=== PATIENT | male | born 1985 | race Hispanic/Latino ===

== ENCOUNTER 2018-03-03 13:59 | Emergency (ER) | payer SELFPAY ==
[~2018-03-03] VITALS: Ht 175.3 cm; Wt 87.5 kg
[~2018-03-03 13:59] MED LIST: AUGMENTIN 875-1 EACH PO; BACTRIM DS TAB1 EACH PO; NORCO 10MG-325MG1 EA PO; PREDNISONE; TYLENOL WITH C1 EACH PO; Z.0.ASACOL400 MG; Z.0.NEXIUM20 MG
--- OUTSIDE RECORDS SUMMARY | 2018-03-03 14:01 | XMS REPORT ---
Author Author [facility] Address Unknown Phone Unavailable Care Team Providers Care Gardening Supervisor Name Role Phone UNKNOWN, REFFERING PP Unavailable Giselle GILL Unavailable Unavailable JUAN FIELDS M.D. Unavailable Unavailable Payers Payer Name Policy Type Policy Number Effective Date Expiration Date Problems This patient has no known problems. Allergies, Adverse Reactions, Alerts Allergy Name Allergy Type Status Severity Reaction(s) Onset Date Inactive Date Treating Clinician Comments morphine DA Active SV 2017-09-09 00:00:00 Medications This patient has no known medications. Encounters Start Date/Time End Date/Time Encounter Type Admission Type Attending Clinicians Care Facility Care Department Encounter ID 2017-09-05 00:00:00 2017-09-06 00:00:00 Outpatient [facility] [id number] Results Test Description Test Time Test Comments Text Results Atomic Results Result Comments Culture, Blood Routine 2017-03-13 09:45:00 Specimen: BloodCollected: 03/07/2017 19:25 Status: Final Last Updated: 03/13/2017 09:45 (1) ER Bed 10 Culture Result (Final) (Final) No Growth After 5 Days Culture, Blood Routine 2017-03-13 09:45:00 Specimen: BloodCollected: 03/07/2017 19:15 Status: Final Last Updated: 03/13/2017 09:45 (1) ER Bed 10 Culture Result (Final) (Final) No Growth After 5 Days Culture, Blood Routine 2017-03-13 09:45:00 Specimen: BloodCollected: 03/07/2017 19:00 Status: Final Last Updated: 03/13/2017 09:45 (1) ER Bed 10 Culture Result (Final) (Final) No Growth After 5 Days Magnesium, Serum 2017-03-08 11:55:00 Magnesium (test code=MG) 2.0 mg/dL 1.7-2.5 Basic Metabolic [id number] 11:55:00* Test Item Value Reference Range Comments Sodium (test code=NA) 130 mmol/L 135-145 Potassium (test code=K) 3.9 mmol/L 3.5-5.1 Chloride (test code=CL) 96 mmol/L 98-105 Carbon Dioxide (test code=CO2) 25 mmol/L 22-29 Glucose (test code=GLU) 118 mg/dL 70-115 Blood Urea Nitrogen (test code=BUN) 27 mg/dL 6-20 Creatinine (test code=CREAT) 0.8 mg/dL 0.7-1.2 Calcium (test code=CA) 8.7 mg/dL 8.3-10.5 BUN/Creatinine Ratio (test code=BCRATIO) 33.8 Anion Gap (test code=AGAP) 9 mmol/L 7-16 Estimated GFR (test code=GFR) >60 mL/min/1.73m2 eGFR (estimated Glomerular Filtration Rate) is an estimated value,calculated from the patient's serum creatinine using the MDRD equation.It is NOT the patient's actual GFR. The eGFR provides a more clinicallyuseful measure of kidney disease than serum creatinine alone.This calculation takes sex and race into account, if the informationis provided. If the race is not provided, and the patient isAfrican-Guamanian, multiply by 1.212. If sex is not provided, and thepatient is female, multiply by 0.742. Results for patients <18 years ofage have not been validated by the MDRD study and should be interpretedwith caution.eGFR Result Interpretation:eGFR > or=60 is in the Normal RangeeGFR < 60 may mean kidney diseaseeGFR < 15 may mean kidney failureRanges recommended by the National Kidney Foundat ion,http://nkdep.nih.gov XR CHEST 1 [id number] 03:51:54AFTER HOURS SERVICE ON: 03/08/2017 3:51 AMAP Portable ChestLocation Code [id number]: leukocytosisFINDINGS: There are no infiltrates. There are no pleural effusions. There is nopneumothorax. Cardiac silhouette and mediastinum appear within normallimits. IMPRESSION: No active intrathoracic findings.XR SHOULDER 2+V.[id number] 03:51:25AFTER HOURS SERVICE ON: 03/08/2017 3:51 AMRight Shoulder, 4 ViewsLocation Code M1 2History: shoulder painFindings:There is normal anatomic alignment. No fractur e or dislocation is seen. Glenohumeral joint is within normal limits. Acromiocl avicular joint isunremarkable.Impression:Unremarkable shoulder radiograph.CT HEAD OR BRAIN WO [id number] 20:37:46Exam: CT of the brain without contrast.History: Choreiform movementsTechnique: Contiguous axial CT images were obtained from the skull basethrough the vertex without contrast. One or more of the following dose reduction techniques were used:Automated exposure control, adjustment of the mA and/or kV according topatient size, and/or utilization of iterative reconstruction technique.Total DLP: 785.8mGy-cm. Comparison: NoneLocation: S79Glljdfst: The ventricles and sulci are normal in size and symmetric. The basalcisterns are patent. There is no mass effect or midline shift. There is no evidence for acute territorial infarction. There is no acuteintracranial hemorrhage. There are no extra-axial fluid collections. Mucosal disease is identified within the right maxillary sinus. Themastoid air c ells are well aerated.Impression: 1. No non-contrast ct evidence of an acute in tracranial abnormality. Lactic Acid [id number] 20:20:00* Test Item Value Reference Range Comments Lactic Acid, Bld (test code=LAC) 0.9 mmol/L 0.5-1.9 C-Reactive Protein, [id number] 20:02:00* Test Item Value Reference Range Comments CRP (test code=CRP) 28.2 mg/L 0.0-5.0 Sed Rate ESR ([place])2017-03-07 19:46:00* Test Item Value Reference Range Comments ESR (test code=HESR) 22 mm/Hr 0-9 Alcohol/Ethanol, [id number] 18:59:00* Test Item Value Reference Range Comments Alcohol, Ethyl (test code=ETOH) <0.01 g/dL 0.00-0.01 Intoxicated 0.080 g/dL or more [id number] 18:59:00* Test Item Value Reference Range Comments Salicylate (test code=SALI) <0.3 mg/dL 0.3-10.0 Change in unit of measurement for Salicylate ( from ug/mL to mg/dL ) Comprehensive Metabolic [id number] 18:59:00* Test Item Value Reference Range Comments Sodium (test code=NA) 133 mmol/L 135-145 Potassium (test code=K) 4.3 mmol/L 3.5-5.1 Chloride (test code=CL) 93 mmol/L 98-105 Carbon Dioxide (test code=CO2) 22 mmol/L 22-29 Glucose (test code=GLU) 88 mg/dL 70-115 Blood Urea Nitrogen (test code=BUN) 37 mg/dL 6-20 Creatinine (test code=CREAT) 1.4 mg/dL 0.7-1.2 Calcium (test code=CA) 9.9 mg/dL 8.3-10.5 Prot Total (test code=TP) 8.6 g/dL 6.4-8.3 Albumin (test code=ALB) 4.7 g/dL 3.5-5.2 A/G Ratio (test code=AGRATIO) 1.2 Ratio Globulin (test code=GLOB) 3.9 2.9-3.1 Bili Total (test code=TBIL) 0.8 mg/dL 0.1-0.9 Alk Phos (test code=APHOS) 110 U/L 40-129 AST (test code=AST) 65 U/L 1-40 ALT (test code=ALT) 29 U/L 1-41 BUN/Creatinine Ratio (test code=BCRATIO) 26.4 Anion Gap (test code=AGAP) 18 mmol/L 7-16 Estimated GFR (test code=GFR) >60 mL/min/1.73m2 eGFR (estimated Glomerular Filtration Rate) is an estimated value,calculated from the patient's serum creatinine using the MDRD equation.It is NOT the patient's actual GFR. The eGFR provides a more clinicallyuseful measure of kidney disease than serum creatinine alone.This calculation takes sex and race into account, if the informationis provided. If the race is not provided, and the patient isAfrican-Guamanian, multiply by 1.212. If sex is not provided, and thepatient is female, multiply by 0.742. Results for patients <18 years ofage have not been validated by the MDRD study and should be interpretedwith caution.eGFR Result Interpretation:eGFR > or=60 is in the Normal RangeeGFR < 60 may mean kidney diseaseeGFR < 15 may mean kidney failureRanges recommended by the National Kidney Foundat ion,http://nkdep.nih.gov [id number] 18:59:00* Test Item Value Reference Range Comments Acetaminophen (test code=ACET) <15.0 ug/mL 15.0-30.0 CBC with [id number] 18:25:00* Test Item Value Reference Range Comments WBC (test code=WBC) 17.7 K/cumm 4.4-10.5 RBC (test code=RBC) 5.06 M/cumm 4.10-5.70 Hemoglobin (test code=HGB) 13.8 gm/dL 13.4-17.4 Hematocrit (test code=HCT) 41.3 % 38.7-52.0 MCV (test code=MCV) 81.5 fL 80-100 MCH (test code=MCH) 27.3 pg 27.0-32.5 MCHC (test code=MCHC) 33.5 g/dL 32.0-37.5 RDW (test code=RDW) 13.7 % 11.5-14.5 Platelet Count (test code=PLTCT) 383 K/cumm 140-440 MPV (test code=MPV) 7.0 fL Diff Method (test code=DIFFM) Auto Neutrophil (test code=NEUT) 76.4 % 36-70 Lymphocyte (test code=LYMPH) 16.7 % 12-44 Monocyte (test code=MONO) 5.7 % 0-11 Eosinophil (test code=EOS) 1.0 % 0-7 Basophil (test code=BASO) 0.3 % 0-2 Neutro Abs (test code=ANEUT) 13.5 K/cumm 1.6-7.4 Lymph Abs (test code=ALYMPH) 3.0 K/cumm 0.5-4.6 Mchenry Abs (test code=AMONO) 1.0 K/cumm 0.0-1.2 Eos Abs (test code=AEOS) 0.17 K/cumm 0.00-0.74 Baso Abs (test code=ABASO) 0.1 K/cumm 0.00-0.21 HUMERUS LEFT 2+VIEWS [place] [id number] Patient Name: KRISTIN REGALADO MR #: [id number] : 1985 Age/Sex: 31/M Req #: [id number] Adm Physician: Ordered by: JOEL GILL MD Report #: [id number] Location: ER Room/Bed: Procedure: [id number] DX/HUMERUS LEFT 2+VIE WS Exam Date: 04/27/17 Exam Time: 1740 REPORT STATUS: Signed PROCEDURE: X-RAY LEFT HUMERUS, TWO OR MORE VIEWS FAVIOLA RISON: None. INDICATIONS: LEFT MID UPPER ARM ABSCESS FINDINGS: 2 views of the left humerus (AP lateral) There are no fractures, disloc ations, lytic or blastic lesions. The bones are well-mineralized. Lucency in the soft tissue of the left lateral arm consistent with laceration/abscess. CONCLUSION: Soft tissue abscess in the left upper arm. No evidence of underlying osteomyelitis. Dictated by: Lennox Marquis M.D. on 04/27/19 18 at 18:19 Electronically approved by: Lennox Marquis M.D. on 8 at 18:19 Dictated By: LENNOX MARQUIS MD Electronically Si gned By: LENNOX MARQUIS MD on 04/27/171818 Transcribed By: CINTHIA on 04/27/179 COPY TO: JOEL GILL MD
[2018-03-03] MEDS ORDERED: CLINDAMYCIN HC300 MG PO (16:53)
[2018-03-03] MEDS ORDERED: LIDOCAINE 1% W/EPINEPHRINE 20 ML VIAL INJ ONE (17:00)
[2018-03-03] MEDS ORDERED: TYLENOL WITH C1 EACH PO (17:26)
[2018-03-03] MEDS ORDERED: HYDROCODONE/APAP 7.5MG-325MG 1 EA TAB PO PRN (17:30)
[2018-03-03] MEDS ORDERED: CLINDAMYCIN PHOS 600 MG/ 4 ML VIAL IM NR (17:30)
[2018-03-03] MEDS ORDERED: BACTRIM DS TAB1 EACH PO (17:40)
== END 2018-03-03 18:16 | disposition home or self-care (01) ==
LOC: ER 13:59
DX: L02.413 Cutaneous abscess of right upper limb (principal); L03.113 Cellulitis of right upper limb
CPT/HCPCS: 10060; 87071; 87186; 87205; 99283

== ENCOUNTER 2018-08-07 21:00 | Inpatient (IN) | payer SELFPAY ==
[~2018-08-07] VITALS: Ht 175.3 cm; Wt 87.5 kg
[~2018-08-07 21:00] MED LIST changes: +CLINDAMYCIN HC300 MG PO
[2018-08-07] MEDS: PIPER-TAZ 3.375 GM 50 ML IV SCH (22:55)
[2018-08-07 23:03] LABS: BASOPHILS # (AUTO) 0.1 (0.0-0.1); BASOPHILS % 0.5 % (0.0-1.0); EOSINOPHILS # (AUTO) 0.4 (0.0-0.4); HEMATOCRIT 32.6 % (38.2-49.6); HEMOGLOBIN 10.9 g/dL (14.0-18.0); LYMPHOCYTES # (AUTO) 2.1 (1.0-3.2); LYMPHOCYTES % 20.2 % (18.0-39.1); MEAN CORPUSCULAR HEMOGLOBIN 26.7 pg (28-32); MEAN CORPUSCULAR HGB CONC 33.4 g/dL (31-35); MEAN CORPUSCULAR VOLUME 79.9 fL (81-99); MONOCYTES # (AUTO) 0.9 (0.2-0.8); NEUTROPHILS # (AUTO) 6.7 (2.1-6.9); NEUTROPHILS % 65.5 % (38.7-80.0); PLATELET COUNT 378 x10e3/uL (140-360); RED BLOOD COUNT 4.08 x10e6/uL (4.3-5.7); RED CELL DISTRIBUTION WIDTH 13.7 % (11.7-14.4)
[2018-08-07] MEDS: VANCOMYCIN 1GM/NS 250 ML 250 ML IV SCH (23:10)
[2018-08-07] MEDS ORDERED: TRAMADOL HCL 50 MG TAB PO ONE (23:15)
[2018-08-07 23:20] LABS: ALANINE AMINOTRANSFERASE 16 IU/L (0-55); ALBUMIN 2.7 g/dL (3.5-5.0); ALBUMIN/GLOBULIN RATIO 0.6 (0.8-2.0); ALKALINE PHOSPHATASE 94 IU/L (40-150); ANION GAP 12.4 mmol/L (8-16); BLOOD UREA NITROGEN 22 mg/dL (7-26); BUN/CREATININE RATIO 22 (6-25); CARBON DIOXIDE 24 mmol/L (22-29); CHLORIDE 104 mmol/L (98-107); EST GLOMERULAR FILTRATION RATE > 60 ML/MIN (60-); GLUCOSE 104 mg/dL (74-118); POTASSIUM 3.4 mmol/L (3.5-5.1); SODIUM 137 mmol/L (136-145)
[2018-08-07] MEDS ORDERED: SODIUM CHLORIDE 0.9% 50ML 50 ML ONE (23:34)
[2018-08-07] MEDS ORDERED: IOPAMIDOL 370 MG/ML 200 ML INFUS..BTL INJ ONE (23:34)
[2018-08-08] VITALS (9 sets, daily range): BP systolic 130–154; BP diastolic 65–86
--- NOTE | 2018-08-08 00:09 | Diagnostic Imaging Report ---
TECHNIQUE: Computed tomography imaging of the PELVIS was performed with injected contrast using standard departmental protocols. 100 cc of Isovue administered.Dose modulation, iterative reconstruction, and/or weight based adjustment of the mA/kV was utilized to reduce the radiation dose to as low as reasonably achievable HISTORY: Infection COMPARISON: None. FINDINGS: Skin thickening and subcutaneous edema involving the left lateral hip and proximal thigh. Soft tissue defects extending laterally through the skin surface. No drainable abscess. Reactive left inguinal lymph nodes. Osseous structures unremarkable. Intrapelvic organs unremarkable. IMPRESSION: Left lateral hip and proximal thigh superficial cellulitis with soft tissue defects. No abscess. Signed by: Dr. Hiram Montoya M.D. on 08/08/2018 12:06 AM
[2018-08-08] MEDS ORDERED: TRAMADOL HCL 50 MG TAB PO PRN (00:45)
[2018-08-08] MEDS ORDERED: ONDANSETRON HCL INJ 2MG/ML 2ML 2 MG/ML VIAL IV PRN (00:45)
[2018-08-08] MEDS ORDERED: SODIUM CHLORIDE FLUSH 10 ML SYR INJ PRN (00:45)
[2018-08-08 00:56] LABS: CLARITY,URINE CLEAR (CLEAR); COLOR,URINE YELLOW (YELLOW); KETONES,URINE NEGATIVE (NEGATIVE); LEUKOCYTE ESTERASE ,URINE NEGATIVE (NEGATIVE); NITRITE,URINE NEGATIVE (NEGATIVE); PROTEIN,URINE DIPSTICK NEGATIVE (NEGATIVE)
[2018-08-08 00:57] LABS: AMPHETAMINES SCREEN,URINE POSITIVE (NEGATIVE); BENZODIAZEPINES SCREEN,URINE NEGATIVE (NEGATIVE); BILIRUBIN,URINE NEGATIVE (NEGATIVE); PHENCYCLIDINE SCREEN,URINE NEGATIVE (NEGATIVE); URINE UROBILINOGEN 0.2 mg/dL (0.2 - 1)
[2018-08-08 01:09] LABS: BACTERIA,URINE RARE /HPF; EPITHELIAL CELLS,URINE RARE /LPF; RBC,URINE 0-5 /HPF (0-5)
--- NOTE | 2018-08-08 03:16 | NUR ---
PT IS TRANSFERRED FROM ER .PT IS AOX3 RESPIRATIONS ARE EVEN AND UNLABORED LEFT HIP WITH CELLULITIS AND LEFT UPPER EXT WITH ABSCESS .LEFT EJ S/L .BED LOWER POSITION .DENIES PAIN .CALL LIGHT WITH IN REACH .CONTINUE TO MONITOR
[2018-08-08] MEDS ORDERED: SODIUM CHLORIDE 0.9% 250ML 250 ML ONE (05:30)
[2018-08-08] MEDS: PIPER-TAZ 3.375 GM 50 ML IV SCH ×2 (06:00→13:55)
--- NOTE | 2018-08-08 07:05 | NUR ---
PT RESTING .CALL LIGHT WITH IN REACH .CONTINUE TO MONITOR BEDSIDE REPORT GIVEN TO THE ONCOMING NURSE
--- NOTE | 2018-08-08 07:25 | NUR ---
PATIENT IN BED RESTING WITH NO S/S OF DISTRESS. C/O PAIN TO LEFT HIP AND PAIN MEDICATION ADMINISTERED ORDERED. DRESSING DRY AND INTACT TO LEFT HIP. BED IN LOWER POSITION, CALL LIGHT AT REACH.
[2018-08-08] MEDS: VANCOMYCIN 1GM/NS 250 ML 250 ML IV SCH (09:36)
[2018-08-08] MEDS ORDERED: HYDRALAZINE HCL 20 MG/ML VIAL IV PRN (11:15)
[2018-08-08] MEDS ORDERED: ACETAMINOPHEN 325 MG TAB PO PRN (11:15)
--- NOTE | 2018-08-08 11:22 | NUR ---
DR MARTINES'S STRAINER TENDER IN TO SEE PATIENT. NEW ORDERS RECEIVED.
[2018-08-08] MEDS: HYDROCODONE/APAP 5MG-325MG TAB PO PRN ×2 (13:25→17:50)
--- NOTE | 2018-08-08 15:26 | NUR ---
Wound Care Consultation - Initial Evaluation Patient admitted from home to ER for abscess of left upper anterior Leg that started 2-3 wks ago. Patient has history of recurrent boils and multiple I&D's. He verbalizes he was ignoring area and hoping it would go away on its own. Blood Culture - Results Pending Wound Culture - Results Pending Imaging of Left Lat Hip -consistent with Cellulitis LABS: WBC10.21 HGB10.9 HCT32.6 ALB2.7 HbA1c Results Pending Wound Care Consulted for Evaluation and Recommendation of Left Anterior Upper Thigh Ulcer. PATIENT VISIT: Patient AAOX4. Calm and Cooperative Patient Presents with Open Ulcer to Left Anterior Upper thigh. Open area is 2x2x undetermined depth due to tissue necrosis. Undermining visible but unable to explore extent of tissue damage due to area being highly sensitive with guarding upon light touch. Medially there is another open area that is 0.3x0.3 cm with boggy periwound draining purulent bloody fluid that likely connects/undermines to larger ulcer. ABD and 4x4 gauze dressing was 100% saturated with purulent drainage. Indurated area 20x20 cm. Likely has extensive tissue damage and patient will benefit from surgical consult for I&D and washout. Venancio Score [address] RECOMMENDATION: Needs Surgical Debridement with possible VAC placement after surgical I&D and washout. 1. Left Upper Anterior Thigh - Abscess - - Irrigate wound with 30cc of Dakin's 0.25% Solution q12H - Apply Drawtex Strips lightly packed as tolerated into wound base and undermining then Cover with ABD Pad q12H. Thank you for consulting with Wound Care. Addendum: 08/08/18 at 1541 by Kong Valdez RN Amended: Links added.
[2018-08-08] MEDS ORDERED: SODIUM HYPOCHLORITE 0.25% 480 ML SOLN IR SCH (15:45)
--- NOTE | 2018-08-08 15:48 | NUR ---
WOUND SPECIMEN COLLECTED AND SENT TO THE LAB. PATIENT IN BED TALKING ON THE PHONE, NO COMPLAIN VOICED.
--- NOTE | 2018-08-08 15:57 | NUR ---
GAVE PACKET OF INFORMATION WITH COMMUNITY [employer]OURCES FOR ASSISTANCE WITH LOW TO NO INCOME TO PATIENT. RESOURCES THAT PATIENT MAY BE ABLE TO FOLLOW UP UPON DISCHARGE. PT EDUCATED ON EACH RESOURCE AND UNDERSTANDING HOW TO FOLLOW UP TO SEE IF QUALIFIED FOR EACH RESOURCE.
--- NOTE | 2018-08-08 15:57 | NUR ---
$4 MEDICATION LIST ON CHART FOR MD TO UTILIZE.
--- NOTE | 2018-08-08 18:11 | NUR ---
Nutrition Screen Note RD Recommendation for Physician: -Continue regular diet as ordered Plan of Care: RD following, monitoring for tolerance and adequacy Nutrition reason for involvement: Nutrition Risk Trigger MST Primary Diagnose(s): abscess of LUE PMH: recurrent boils and multiple I&D's Ht: 69in Wt: 193lb BMI: 28.5kg/m2 IBW: 160lb RD Assessment: (08/08) Chart reviewed. Labs and meds reviewed. 32yo M, who was admitted for abscess of left upper anterior leg that started 2-3 wks ago. Visited pt in the room. Pt was eating [employer]. Family brought many snacks, drinks and foods from outside. Pt reported good appetite with no GI complains. No issue with chewing or swallowing. Pt reported gradual weight loss (unknown #) but no sign of fat/muscle loss upon observation. Will continue to monitor and follow. Current Diet: regular diet Malnutrition Evaluation (08/08/2018) The patient does not meet criteria for a specified degree of malnutrition at this time. Will re-evaluate at follow-up as appropriate. Diet Education Needs Assessment: Diet education not indicated. Nutrition Care Level: low Signed: Nichole Bernal, MS, RD, LD
[2018-08-08] MEDS ORDERED: LORAZEPAM INJ 2 MG/ML VIAL IV PRN (19:30)
--- NOTE | 2018-08-08 19:45 | NUR ---
RECEIVE DPT IN BED C/O PAIN AND ANXIETY .DAY NURSE CONTACTED HETAL HOBBS GOT THE ORDER FOR ATIVAN .OFFERED PT ATIVAN .PT REFUSED .PT WANTED DILAUDID FOR PAIN .DAY NURSE POWER CRANE OPERATOR REFUSED TO GIVE DILAUDID.
--- NOTE | 2018-08-08 20:20 | NUR ---
PT WANTS TO GO AMA AND GIVEN THE AMA FORM PT SIGNED .IV REMOVED .PT LEFT THE BUILDING.NOTIFIED HETAL HOBBS .
--- NOTE | 2018-08-10 06:11 | Discharge Summary ---
ADMISSION DIAGNOSES: Left thigh wound present on admission; anemia; hypokalemia; illicit drug use including opiates, methamphetamines and amphetamines; left lower extremity edema. DISCHARGE DIAGNOSES: Left thigh wound present on admission; anemia; hypokalemia; illicit drug use including opiates, methamphetamines and amphetamines; left lower extremity edema. Rule out left lower extremity deep vein thrombosis. HISTORY: The patient has a history of multiple boils. SURGICAL HISTORY: Includes multiple I and D's and a left knee ACL repair. FAMILY HISTORY: The patient's dad had cancer. SOCIAL HISTORY: The patient admits to smoking less than 1 pack per week for five years. He denies alcohol use and illicit drug use, although his urine drug screen was positive for methamphetamines, amphetamines, and opiates. HOSPITAL COURSE: A 32-year-old male, complains of left anterior upper thigh wound that began two weeks ago. About three days ago, the wound popped and drained pus. The patient denies fever and IV drug use. He has not used any antibiotics. On admission, the patient was started on vancomycin and Zosyn. Wound culture was ordered. CT of the pelvis was negative for abscess. Left lower extremity venous Doppler was negative for DVT. The patient was very adamant that his pain was uncontrolled. He was started on [place]. Wound Care was consulted. Prior to being seen by Wound Care, the patient left AMA as he says he was not getting the Dilaudid that he wanted, so he wanted to leave. The patient discharged before the nurse called the attending regarding the patient leaving AMA. Dictated by Brooke Nguyen NP MD DOUGLAS Ragland/MODIsabell /[id number]
== END 2018-08-08 19:45 | disposition left against medical advice (07) | DRG 605 ==
LOC: ER 21:00 → ERHOLD 08-08 00:57 → MED/SURG3 08-08 02:23
PROVIDERS: ADMIT Internal Medicine; ATTEND Internal Medicine
DX: S71.102A Unspecified open wound, left thigh, initial encounter (principal); I82.402 Acute embolism and thrombosis of unspecified deep veins of left lower extremity; L03.116 Cellulitis of left lower limb; X58.XXXA Exposure to other specified factors, initial encounter; D64.9 Anemia, unspecified; E87.6 Hypokalemia; F15.10 Other stimulant abuse, uncomplicated; F11.10 Opioid abuse, uncomplicated
CPT/HCPCS: 36415; 72193; 80053; 80307; 81001; 85025; 87040; 87071; 87186; 87205; 93971; 99284; J2543; J3370; J7050; Q9967

== ENCOUNTER 2019-02-26 04:09 | Emergency (ER) | payer SELFPAY ==
[~2019-02-26] VITALS: Ht 175.3 cm; Wt 87.5 kg
--- NOTE | 2019-02-26 04:32 | NUR ---
Patients requesting to see another doctor. Patients in triage door stating he needs a shot, dr marquez explained calmly to that a shot of antibiotics would not resolve the skin issue if the patient does not fill prescriptions. good rx coupons given. patients irrate and raising voice.
--- NOTE | 2019-02-26 04:32 | NUR ---
DC PAPERWORK AND RX GIVEN TO PATIENT. PT EXPRESSED CONCERN ABOUT PAYING FOR ANTIBIOTIC. DR MONTERO PROVIDED PT C GOOD RX COUPON FOR ANTIBIOTICS AT COST OF $12.99 TO PATIENT. PT COUNSELLED ON NEED TO TAKE ALL ANTIBIOTICS UNTIL COMPLETE. PT VERBALIZED UNDERSTANDING OF ALL INSTRUCTIONS.
[2019-02-26 04:54] VITALS: BP 154/91
== END 2019-02-26 04:35 | disposition home or self-care (01) ==
LOC: ER 04:09
DX: S81.802A Unspecified open wound, left lower leg, initial encounter (principal); S81.801A Unspecified open wound, right lower leg, initial encounter; L03.116 Cellulitis of left lower limb; L03.115 Cellulitis of right lower limb
CPT/HCPCS: 99282

== ENCOUNTER 2021-06-02 19:38 | Inpatient (IN) | payer SELFPAY ==
[~2021-06-02] VITALS: Ht 175.3 cm; Wt 87.5 kg
[2021-06-02] MEDS ORDERED: LACTATED RINGER'S 1,000 ML INJ ONE ×2 (20:15→21:15)
[2021-06-02] MEDS ORDERED: SODIUM CHLORIDE 0.9% 1000ML 1,000 ML IV ONE (20:45)
[2021-06-02 20:48] LABS: BASOPHILS # (AUTO) 0.1 (0.0-0.1); BASOPHILS % 0.5 % (0.0-1.0); HEMATOCRIT 34.6 % (38.2-49.6); HEMOGLOBIN 10.9 g/dL (14.0-18.0); LYMPHOCYTES # (AUTO) 0.5 (1.0-3.2); LYMPHOCYTES % 3.2 % (18.0-39.1); MEAN CORPUSCULAR HEMOGLOBIN 25.7 pg (28-32); MEAN CORPUSCULAR HGB CONC 31.5 g/dL (31-35); MEAN CORPUSCULAR VOLUME 81.6 fL (81-99); MONOCYTES # (AUTO) 0.3 (0.2-0.8); MONOCYTES % 1.8 % (4.4-11.3); NEUTROPHILS # (AUTO) 14.2 (2.1-6.9); NEUTROPHILS % 91.9 % (38.7-80.0); PLATELET COUNT 280 x10e3/uL (140-360); RED BLOOD COUNT 4.24 x10e6/uL (4.3-5.7); RED CELL DISTRIBUTION WIDTH 15.6 % (11.7-14.4)
[2021-06-02 21:10] LABS: ALBUMIN 2.5 g/dL (3.5-5.0); ALBUMIN/GLOBULIN RATIO 0.6 (0.8-2.0); ANION GAP 17.3 mmol/L (8-16); CALCIUM 8.7 mg/dL (8.4-10.2); CREATININE, SERUM 1.78 mg/dL (0.72-1.25); POTASSIUM 4.3 mmol/L (3.5-5.1)
[2021-06-02] MEDS ORDERED: LACTATED RINGER'S 1,000 ML IV ONE ×2 (21:15)
[2021-06-02 21:16] LABS: BAND NEUTROPHILS % (MANUAL) 1 %; LYMPHOCYTES % (MANUAL) 2 % (19-48); METAMYELOCYTES % (MANUAL) 1 % (0-0); MONOCYTES % (MANUAL) 6 % (3.4-9.0); NEUTROPHILS % (MANUAL) 89 % (40-74); PLATELET ESTIMATE ADEQUATE; PLATELET MORPHOLOGY COMMENT NORMAL; RBC MORPHOLOGY COMMENT NORMAL
[2021-06-02] MEDS ORDERED: SODIUM CHLORIDE 0.9% 50ML 50 ML ONE (21:37)
[2021-06-02] MEDS ORDERED: IOPAMIDOL 370 MG/ML 200 ML INFUS..BTL INJ ONE (21:38)
[2021-06-02] MEDS ORDERED: CEFEPIME 1 GM in SODIUM CHLORIDE 0.9% 50ML 50 ML IV SCH (23:15)
[2021-06-02] MEDS ORDERED: Vancomycin IV 1 GM in SODIUM CHLORIDE 0.9% 250ML 250 ML IV STA (23:16)
[2021-06-02] MEDS: SODIUM CHLORIDE 0.9% 1000ML 1,000 ML IV SCH (23:53)
[2021-06-03] VITALS (14 sets, daily range): BP systolic 89–136; BP diastolic 49–95
[2021-06-03] MEDS ORDERED: ONDANSETRON HCL INJ 2MG/ML 2ML 2 MG/ML VIAL IV PRN (00:15)
[2021-06-03] MEDS ORDERED: MELATONIN 3 MG TAB PO PRN (00:15)
[2021-06-03] MEDS ORDERED: HYDRALAZINE HCL 20 MG/ML VIAL IV PRN (00:15)
[2021-06-03] MEDS ORDERED: MAGNESIUM/ALUMINUM/SIMETHICONE 30 ML UDC PO PRN (00:15)
[2021-06-03] MEDS ORDERED: DOCUSATE SODIUM 100 MG CAP PO PRN ×2 (00:15→08:15)
[2021-06-03] MEDS ORDERED: ACETAMINOPHEN 325 MG TAB PEG PRN (00:15)
[2021-06-03] MEDS ORDERED: NOREPINEPHRINE 8 MG/D5W 250 ML 250 ML ONE (01:02)
[2021-06-03] MEDS: NOREPINEPHRINE 8 MG/D5W 250 ML 250 ML IV SCH (01:05)
[2021-06-03 01:48] LABS: CLARITY,URINE CLEAR (CLEAR); COLOR,URINE YELLOW (YELLOW); KETONES,URINE NEGATIVE (NEGATIVE); LEUKOCYTE ESTERASE ,URINE NEGATIVE (NEGATIVE); NITRITE,URINE NEGATIVE (NEGATIVE); PROTEIN,URINE DIPSTICK 1+ (NEGATIVE); URINE UROBILINOGEN 0.2 mg/dL (0.2 - 1)
[2021-06-03 01:51] LABS: AMPHETAMINES SCREEN,URINE POSITIVE (NEGATIVE); BENZODIAZEPINES SCREEN,URINE POSITIVE (NEGATIVE); PHENCYCLIDINE SCREEN,URINE NEGATIVE (NEGATIVE)
[2021-06-03 01:53] LABS: BACTERIA,URINE FEW /HPF; EPITHELIAL CELLS,URINE RARE /LPF; RBC,URINE 0-5 /HPF (0-5); WBC,URINE (MAN) 0-5 /HPF (0-5)
[2021-06-03] MEDS: GUAIFENESIN/DEXTROMETHORPHAN LIQD 5 ML UDC PO PRN ×2 (02:23→12:18)
[2021-06-03 06:09] LABS: BASOPHILS # (AUTO) 0.1 (0.0-0.1); BASOPHILS % 0.6 % (0.0-1.0); EOSINOPHILS % 0.2 % (0.0-6.0); HEMATOCRIT 32.2 % (38.2-49.6); HEMOGLOBIN 10.5 g/dL (14.0-18.0); LYMPHOCYTES % 5.3 % (18.0-39.1); MEAN CORPUSCULAR HEMOGLOBIN 25.8 pg (28-32); MEAN CORPUSCULAR HGB CONC 32.6 g/dL (31-35); MEAN CORPUSCULAR VOLUME 79.1 fL (81-99); MONOCYTES # (AUTO) 0.2 (0.2-0.8); NEUTROPHILS # (AUTO) 17.5 (2.1-6.9); NEUTROPHILS % 90.9 % (38.7-80.0); PLATELET COUNT 290 x10e3/uL (140-360); RED BLOOD COUNT 4.07 x10e6/uL (4.3-5.7); RED CELL DISTRIBUTION WIDTH 15.9 % (11.7-14.4)
[2021-06-03 06:33] LABS: ANION GAP 13.7 mmol/L (8-16); CALCIUM 7.9 mg/dL (8.4-10.2); CREATININE, SERUM 1.21 mg/dL (0.72-1.25); POTASSIUM 3.7 mmol/L (3.5-5.1)
[2021-06-03 07:21] LABS: THYROID STIMULATING HORMONE 0.789 uIU/mL (0.350-4.940)
[2021-06-03 07:40] LABS: HIV 1&2 AB SCREEN NON-REACTIVE (NONREACTIVE)
[2021-06-03] MEDS: SODIUM CHLORIDE 0.9% 1000ML 1,000 ML IV SCH ×2 (08:00→16:43)
[2021-06-03] MEDS: FAMOTIDINE 20 MG TAB PO SCH ×2 (08:00→17:51)
[2021-06-03 08:51] LABS: BAND NEUTROPHILS % (MANUAL) 37 %; LYMPHOCYTES % (MANUAL) 3 % (19-48); METAMYELOCYTES % (MANUAL) 11 % (0-0); MYELOCYTES % (MANUAL) 4 % (0-0); NEUTROPHILS % (MANUAL) 45 % (40-74); PLATELET ESTIMATE ADEQUATE; PLATELET MORPHOLOGY COMMENT NORMAL; RBC MORPHOLOGY COMMENT NORMAL
[2021-06-03] MEDS ORDERED: MULTIVITAMINS/MINERALS TAB PO SCH (09:00)
[2021-06-03] MEDS: MULTIVITAMINS/MINERALS TAB PO SCH (09:35)
[2021-06-03] MEDS: CEFTRIAXONE 2 GM in SODIUM CHLORIDE 0.9% 100 ML IV SCH (12:03)
[2021-06-03] MEDS: ENOXAPARIN SOD INJ 40 MG/0.4 ML SYR SC SCH (16:43)
[2021-06-03] MEDS: LORAZEPAM 0.5 MG TAB PO PRN ×2 (20:05→23:59)
[2021-06-03] MEDS ORDERED: ADVIL200 M1 PO (20:38)
[2021-06-03] MEDS ORDERED: TYLENOL325 MG PO (20:39)
[2021-06-04] VITALS (18 sets, daily range): BP systolic 2–140; BP diastolic 52–92
[2021-06-04] MEDS: NOREPINEPHRINE 8 MG/D5W 250 ML 250 ML IV SCH (01:04)
[2021-06-04] MEDS: LORAZEPAM 0.5 MG TAB PO PRN ×3 (04:45→23:56)
[2021-06-04] MEDS: MULTIVITAMINS/MINERALS TAB PO SCH (09:01)
[2021-06-04] MEDS: FAMOTIDINE 20 MG TAB PO SCH ×2 (09:01→16:37)
[2021-06-04] MEDS: CEFTRIAXONE 2 GM in SODIUM CHLORIDE 0.9% 100 ML IV SCH (09:01)
[2021-06-04 14:15] LABS: BASOPHILS # (AUTO) 0.1 (0.0-0.1); BASOPHILS % 0.4 % (0.0-1.0); EOSINOPHILS # (AUTO) 0.4 (0.0-0.4); EOSINOPHILS % 2.6 % (0.0-6.0); HEMOGLOBIN 9.2 g/dL (14.0-18.0); LYMPHOCYTES # (AUTO) 2.2 (1.0-3.2); LYMPHOCYTES % 15.1 % (18.0-39.1); MEAN CORPUSCULAR HEMOGLOBIN 25.3 pg (28-32); MEAN CORPUSCULAR HGB CONC 31.7 g/dL (31-35); MEAN CORPUSCULAR VOLUME 79.9 fL (81-99); MONOCYTES # (AUTO) 0.7 (0.2-0.8); MONOCYTES % 4.9 % (4.4-11.3); NEUTROPHILS # (AUTO) 11.2 (2.1-6.9); NEUTROPHILS % 76.3 % (38.7-80.0); PLATELET COUNT 208 x10e3/uL (140-360); RED BLOOD COUNT 3.63 x10e6/uL (4.3-5.7); RED CELL DISTRIBUTION WIDTH 15.9 % (11.7-14.4)
[2021-06-04 14:39] LABS: ALBUMIN 1.7 g/dL (3.5-5.0); ALBUMIN/GLOBULIN RATIO 0.4 (0.8-2.0); ANION GAP 8.2 mmol/L (8-16); CALCIUM 8.3 mg/dL (8.4-10.2); CREATININE, SERUM 0.77 mg/dL (0.72-1.25); POTASSIUM 3.2 mmol/L (3.5-5.1)
[2021-06-04] MEDS ORDERED: POTASSIUM CHLORIDE 20 MEQ TAB CR PO NR (16:00)
[2021-06-04] MEDS ORDERED: NOREPINEPHRINE 8 MG/D5W 250 ML 250 ML IV SCH (16:00)
[2021-06-04] MEDS: ENOXAPARIN SOD INJ 40 MG/0.4 ML SYR SC SCH (16:37)
[2021-06-05] VITALS (16 sets, daily range): BP systolic 104–135; BP diastolic 53–92
[2021-06-05 05:48] LABS: BASOPHILS % 0.3 % (0.0-1.0); EOSINOPHILS # (AUTO) 0.4 (0.0-0.4); EOSINOPHILS % 4.2 % (0.0-6.0); HEMATOCRIT 27.9 % (38.2-49.6); LYMPHOCYTES # (AUTO) 1.9 (1.0-3.2); LYMPHOCYTES % 17.6 % (18.0-39.1); MEAN CORPUSCULAR HEMOGLOBIN 25.4 pg (28-32); MEAN CORPUSCULAR HGB CONC 32.3 g/dL (31-35); MEAN CORPUSCULAR VOLUME 78.8 fL (81-99); MONOCYTES # (AUTO) 0.9 (0.2-0.8); MONOCYTES % 8.3 % (4.4-11.3); NEUTROPHILS # (AUTO) 7.1 (2.1-6.9); NEUTROPHILS % 67.4 % (38.7-80.0); PLATELET COUNT 206 x10e3/uL (140-360); RED BLOOD COUNT 3.54 x10e6/uL (4.3-5.7)
[2021-06-05 06:00] LABS: ANION GAP 9.7 mmol/L (8-16); CALCIUM 8.8 mg/dL (8.4-10.2); CREATININE, SERUM 0.74 mg/dL (0.72-1.25); POTASSIUM 3.7 mmol/L (3.5-5.1)
[2021-06-05 07:21] LABS: BAND NEUTROPHILS % (MANUAL) 2 %; EOSINOPHILS % (MANUAL) 3 % (0-7); LYMPHOCYTES % (MANUAL) 20 % (19-48); MONOCYTES % (MANUAL) 10 % (3.4-9.0); NEUTROPHILS % (MANUAL) 65 % (40-74); PLATELET ESTIMATE ADEQUATE; PLATELET MORPHOLOGY COMMENT NORMAL
[2021-06-05 07:22] LABS: RBC MORPHOLOGY COMMENT NORMAL
[2021-06-05] MEDS: FAMOTIDINE 20 MG TAB PO SCH ×2 (08:35→16:25)
[2021-06-05] MEDS: MULTIVITAMINS/MINERALS TAB PO SCH (08:35)
[2021-06-05] MEDS: CEFTRIAXONE 2 GM in SODIUM CHLORIDE 0.9% 100 ML IV SCH (08:35)
[2021-06-05] MEDS ORDERED: TRAMADOL HCL 50 MG TAB PO PRN (10:30)
[2021-06-05] MEDS ORDERED: ACETAMINOPHEN/CODEINE 300MG - 30MG TAB PO PRN (10:30)
[2021-06-05] MEDS: GUAIFENESIN/DEXTROMETHORPHAN LIQD 5 ML UDC PO PRN ×2 (12:57→22:44)
[2021-06-05] MEDS: LORAZEPAM 0.5 MG TAB PO PRN ×2 (13:57→22:44)
[2021-06-05] MEDS: ENOXAPARIN SOD INJ 40 MG/0.4 ML SYR SC SCH (16:25)
[2021-06-06] VITALS (10 sets, daily range): BP systolic 113–132; BP diastolic 63–80
[2021-06-06] MEDS: LORAZEPAM 0.5 MG TAB PO PRN (03:18)
[2021-06-06] MEDS: FAMOTIDINE 20 MG TAB PO SCH (07:30)
[2021-06-06] MEDS ORDERED: FAMOTIDINE20 MG PO (07:57)
[2021-06-06] MEDS ORDERED: CEPHALEXIN500 MG PO (07:57)
[2021-06-06] MEDS ORDERED: Multivitamins/Minerals PO (07:57)
[2021-06-06] MEDS ORDERED: ROBITUSSIN COU118 M4 PO (07:57)
[2021-06-06] MEDS ORDERED: ZITHROMAX500 MG PO (07:57)
[2021-06-06] MEDS ORDERED: BENZONATATE100 MG PO (07:57)
[2021-06-06] MEDS: MULTIVITAMINS/MINERALS TAB PO SCH (08:58)
[2021-06-06] MEDS: CEFTRIAXONE 2 GM in SODIUM CHLORIDE 0.9% 100 ML IV SCH (08:58)
[2021-06-06] MEDS: GUAIFENESIN/DEXTROMETHORPHAN LIQD 5 ML UDC PO PRN (09:08)
[2021-06-06] MEDS ORDERED: ONDANSETRON HCL 4 MG ORAL DISINTEGRATING TAB PO PRN (10:45)
[2021-06-06] MEDS ORDERED: AZITHROMYCIN 250 MG TAB PO SCH (21:00)
== END 2021-06-06 13:25 | disposition home or self-care (01) | DRG 871 ==
LOC: ER 20:15 → ERHOLD 23:26 → UNDOADMIN 06-03 00:03 → ERHOLD 06-03 15:03 → IMCU 06-03 15:03 → UNDODISIN 06-06 13:25
PROVIDERS: ADMIT Internal Medicine; ATTEND Internal Medicine
PROC: 3E043XZ Introduction of Vasopressor into Central Vein, Percutaneous Approach (ICD-10-PCS; principal; 2021-06-03)
PROC: 3E04329 Introduction of Other Anti-infective into Central Vein, Percutaneous Approach (ICD-10-PCS; 2021-06-03)
PROC: 02HV33Z Insertion of Infusion Device into Superior Vena Cava, Percutaneous Approach (ICD-10-PCS; 2021-06-03)
DX: A41.9 Sepsis, unspecified organism (principal); J18.9 Pneumonia, unspecified organism; J96.01 Acute respiratory failure with hypoxia; G93.41 Metabolic encephalopathy; R65.21 Severe sepsis with septic shock; N17.9 Acute kidney failure, unspecified; K50.90 Crohn's disease, unspecified, without complications; E88.09 Other disorders of plasma-protein metabolism, not elsewhere classified; K21.9 Gastro-esophageal reflux disease without esophagitis; D64.9 Anemia, unspecified; F15.10 Other stimulant abuse, uncomplicated; F11.10 Opioid abuse, uncomplicated; Z20.822 Contact with and (suspected) exposure to COVID-19; F17.290 Nicotine dependence, other tobacco product, uncomplicated
CPT/HCPCS: 36415; 36569; 71045; 71046; 71260; 74177; 80048; 80053; 80307; 81001; 83036; 83605; 84436; 84443; 84479; 84484; 85025; 87040; 87071; 87186; 87205; 87390; 93005; 94799; 99285; G0433; G0435; J0456; J0692; J0696; J1650; J3370; J7030; J7050; J7121; Q9967; U0002